=== PATIENT | male | born 1970 | race American Indian/Alaskan Native ===

== ENCOUNTER 2021-02-06 17:39 | Inpatient (IN) | payer BC, MEDICAID, OTHER ==
[~2021-02-06] VITALS: Ht 165.1 cm; Wt 84.1 kg
[~2021-02-06 17:39] MED LIST: METH-360 PO
[2021-02-06 18:43] LABS: BASOPHILS # (AUTO) 0.1 X10'3 (0-0.2); LYMPHOCYTES # (AUTO) 1.1 X10'3 (1.1-4.8); MEAN CORPUSCULAR HGB CONC 32.2 g/dL (33.0-36.5); MONOCYTES # (AUTO) 0.6 X10'3 (0-0.9); WHITE BLOOD COUNT 9.8 X10'3 (4.5-11.0)
[2021-02-06 18:44] LABS: BASOPHILS % (AUTO) 0.9 % (0-1); EOSINOPHILS % (AUTO) 0.5 % (0-6); HEMATOCRIT 52.4 % (42.0-52.0); HEMOGLOBIN 16.9 g/dl (14.0-17.9); LYMPHOCYTES % (AUTO) 11.2 % (21-51); MEAN PLATELET VOLUME 8.8 FL (7.4-10.4); MONOCYTES % (AUTO) 5.8 % (2-12); NEUTROPHILS % (AUTO) 81.6 % (42-75); PLATELET COUNT 626 X10'3 (140-440); RED BLOOD COUNT 5.64 X10'6 (4.70-6.10); RED CELL DISTRIBUTION WIDTH 12.9 % (11.5-14.5)
[2021-02-06 19:00] LABS: ALANINE AMINOTRANSFERASE 51 U/L (12-78); ALBUMIN 4.9 G/DL (3.4-5.0); ALBUMIN/GLOBULIN RATIO 1.3 (1.1-1.5); ALKALINE PHOSPHATASE 274 IU/L (46-116); ANION GAP 17 (8-16); ASPARTATE AMINO TRANSFERASE 20 U/L (10-37); BILIRUBIN,TOTAL 0.6 MG/DL (0.1-1.0); BLOOD UREA NITROGEN 19 MG/DL (7-18); BUN/CREATININE RATIO 9.9 (5.4-32.0); CALCIUM 9.5 MG/DL (8.5-10.1); CHLORIDE 84 MMOL/L (99-107); CREATININE 1.92 MG/DL (0.60-1.10); LIPASE 222 U/L (73-393); POTASSIUM 5.4 MMOL/L (3.5-5.1); SODIUM 123 MMOL/L (135-145); TOTAL CARBON DIOXIDE 22.5 MMOL/L (24-32); TOTAL PROTEIN 8.8 G/DL (6.4-8.2); eGFR 37 ML/MIN
[2021-02-06 19:35] LABS: GLUCOSE 1289 MG/DL (70-104)
[2021-02-06] MEDS ORDERED: normal saline 1000ML IV soln IVB ONE ×2 (20:15→21:05)
[2021-02-06] MEDS ORDERED: temazepam 15mg capsule PO PRN (21:00)
[2021-02-06] MEDS ORDERED: magnesium 2GM in 50ml NS 50 ML IV ONE (21:00)
[2021-02-06] MEDS ORDERED: insulin regular, human U-100 3ml vial - multi-dose IV ONE (21:05)
[2021-02-06] MEDS ORDERED: Insulin Reg/NS 100units/100mL 100 ML IV PRN (21:05)
[2021-02-06 21:10] LABS: MAGNESIUM 2.5 MG/DL (1.5-2.4)
[2021-02-06] MEDS ORDERED: dextrose ORAL solution 15 GM/59 ML bottle PO PRN ×4 (21:10→22:45)
[2021-02-06] MEDS ORDERED: glucagon, human recombinant 1mg kit SUBCUT PRN ×2 (21:10→22:45)
[2021-02-06] MEDS ORDERED: dextrose 50%-water 50ml dispensing syringe IV PRN ×4 (21:10→22:45)
[2021-02-06 21:19] LABS: PHOSPHORUS 5.4 MG/DL (2.3-4.5)
[2021-02-06 21:33] LABS: CLARITY,URINE CLEAR (Clear); COLOR,URINE YELLOW (Yellow); GLUCOSE, URINE >=1000 mg/dl (Neg); KETONES,URINE 15 mg/dl (Neg); LEUKOCYTE ESTERASE ,URINE NEGATIVE (Neg); NITRITES, URINE NEGATIVE (Neg); OCCULT BLOOD,URINE TRACE-INTACT (Neg); PROTEIN,URINE NEGATIVE (Neg); UROBILINOGEN,URINE 0.2 E.U/dL (0.2-1.0)
[2021-02-06 21:35] LABS: UA COLLECTION TYPE CLN CATCH MIDSTREAM
--- NOTE | 2021-02-06 21:39 | NUR ---
magnesium not given d/t mag labs high. aware.
[2021-02-06 21:40] LABS: BACTERIA,URINE NONE SEEN /HPF (Neg); MUCUS STRANDS NONE SEEN /LPF (Neg); RBC,URINE 0-2 /HPF (0-2); SQUAMOUS EPITHELIAL CELL,UR FEW /LPF (FEW); WBC,URINE 0-4 /HPF (0-4)
[2021-02-06] MEDS ORDERED: HYDROcodone/acetaminophen 10/325mg tab PO PRN (22:40)
[2021-02-06] MEDS ORDERED: ondansetron/PF 4mg/2ml inj IV PRN (22:40)
[2021-02-06] MEDS ORDERED: magnesium 4gm in 100ml NS 100 ML IV PRN (22:40)
[2021-02-06] MEDS ORDERED: HYDROcodone/acetaminophen 5mg/325mg tablet PO PRN (22:40)
[2021-02-06] MEDS ORDERED: potassium Cl 20 mEq SR tablet PO PRN ×2 (22:40)
[2021-02-06] MEDS ORDERED: magnesium Cl slow-release 64mg tablet PO PRN (22:40)
[2021-02-06] MEDS ORDERED: magnesium 2GM in 50ml NS 50 ML IV PRN (22:40)
[2021-02-06] MEDS ORDERED: morphine 2 MG/ML inj. syringe IV PRN ×2 (22:40)
[2021-02-06] MEDS ORDERED: acetaminophen 325mg tablet PO PRN ×2 (22:40)
[2021-02-06] MEDS ORDERED: potassium Cl 40MEQ/1/2NS 520ml 520 ML IV PRN ×2 (22:40)
[2021-02-06] MEDS ORDERED: MESSAGE TO PHARMACY PO ONE (22:45)
[2021-02-06] MEDS ORDERED: NO HOME MEDS (23:12)
[2021-02-07] MEDS: normal saline 1000ml 1,000 ML IV SCH ×4 (00:30→19:06)
[2021-02-07] MEDS: insulin Lispro (HumaLOG) vial - multi-dose SQ SCH ×3 (01:41→19:06)
[2021-02-07] MEDS: insulin glargine (Lantus) pen - multi-dose SQ SCH ×2 (01:44→21:16)
[2021-02-07] MEDS: K and/or MAG REPLACEMENT MC SCH ×2 (08:00→19:07)
[2021-02-07 08:38] LABS: BASOPHILS # (AUTO) 0.1 X10'3 (0-0.2); EOSINOPHILS # (AUTO) 0.2 X10'3 (0-0.9); HEMATOCRIT 41.4 % (42.0-52.0); HEMOGLOBIN 14.3 g/dl (14.0-17.9); LYMPHOCYTES # (AUTO) 1.7 X10'3 (1.1-4.8); MEAN CORPUSCULAR HEMOGLOBIN 29.8 PG (27.0-31.0); MEAN CORPUSCULAR HGB CONC 34.4 g/dL (33.0-36.5); MEAN CORPUSCULAR VOLUME 86.7 FL (78-98); MEAN PLATELET VOLUME 7.8 FL (7.4-10.4); MONOCYTES # (AUTO) 0.6 X10'3 (0-0.9); MONOCYTES % (AUTO) 7.7 % (2-12); NEUTROPHILS # (AUTO) 5.5 X10'3 (1.8-7.7); NEUTROPHILS % (AUTO) 67.3 % (42-75); PLATELET COUNT 432 X10'3 (140-440); RED BLOOD COUNT 4.78 X10'6 (4.70-6.10); WHITE BLOOD COUNT 8.1 X10'3 (4.5-11.0)
[2021-02-07 08:56] LABS: ALANINE AMINOTRANSFERASE 38 U/L (12-78); ALBUMIN 3.5 G/DL (3.4-5.0); ALBUMIN/GLOBULIN RATIO 1.3 (1.1-1.5); ALKALINE PHOSPHATASE 106 IU/L (46-116); ANION GAP 9 (8-16); ASPARTATE AMINO TRANSFERASE 21 U/L (10-37); BILIRUBIN,TOTAL 0.5 MG/DL (0.1-1.0); BLOOD UREA NITROGEN 13 MG/DL (7-18); BUN/CREATININE RATIO 13.4 (5.4-32.0); CALCIUM 7.7 MG/DL (8.5-10.1); CHLORIDE 108 MMOL/L (99-107); CHOLESTEROL 166 MG/DL (0-200); CREATININE 0.97 MG/DL (0.60-1.10); GLUCOSE 316 MG/DL (70-104); HDL CHOLESTEROL 33 MG/DL (35-60); LDL CHOLESTEROL 91 MG/DL (50-100); MAGNESIUM 2.2 MG/DL (1.5-2.4); POTASSIUM 4.6 MMOL/L (3.5-5.1); SODIUM 143 MMOL/L (135-145); TOTAL CARBON DIOXIDE 26.5 MMOL/L (24-32); TOTAL PROTEIN 6.2 G/DL (6.4-8.2); TRIGLYCERIDES 240 MG/DL (20-135); eGFR 82 ML/MIN
[2021-02-07 09:15] VITALS: BP 134/96
[2021-02-07] MEDS: heparin, porcine 5000 units/ml vial SQ SCH ×2 (09:19→19:07)
--- NOTE | 2021-02-07 09:52 | NUR ---
called roto mixer operator Arturo and requested consult for new onset diabetes. Arturo agreed to see him today
[2021-02-07] MEDS: pantoprazole 40 MG vial IV SCH (09:58)
[2021-02-07 11:00] VITALS: BP 133/87
--- NOTE | 2021-02-07 12:10 | NUR ---
DM Consult: Pt admit DX new onset T2DM A1C 9.9 and acute renal failure GLU currently 316 down from 1289 on admit per EMR. RN TC to RD reports pt has been aware of new DM DX requesting DM ed at this time. Pt/SO seen by RD for thorough written/verbal DM ed w/ RD contact information provided. RD reviewed protein sources/importance, hydration strategies, types of carbs, foods containing carbs, portion sizing, meal frequency, optimal snacks, signs of hyper/hypoglycemia, sick day guidelines, and encouraged pt/SO to contact dietitian's office if further questions/concerns. Pt advanced to carb controlled diet PO pending though reports good appetite. Will continue to monitor. Rec: 1. continue carb controlled diet 2. bowel care per rx 3. scaled wt this admit; subsequent weekly wts Addendum: 02/07/21 at [address] Amended: Links added.
[2021-02-07 15:00] VITALS: BP 118/83
[2021-02-07 16:57] LABS: URINE AMPHETAMINE SCREEN NEGATIVE (Neg); URINE BARBITUATE SCREEN NEGATIVE (Neg); URINE BENZODIAZEPINES SCREEN NEGATIVE (Neg); URINE CANNABINOID SCREEN NEGATIVE (Neg); URINE COCAINE SCREEN NEGATIVE (Neg); URINE METHADONE SCREEN NEGATIVE (Neg); URINE OPIATE SCREEN NEGATIVE (Neg); URINE PHENCYCLIDINE SCREEN NEGATIVE (Neg)
[2021-02-07 18:00] VITALS: BP 127/93
--- NOTE | 2021-02-07 18:11 | NUR ---
Problems reprioritized. Patient report given, questions answered & plan of care reviewed with Zhanna FERMIN. Patient sitting up eating dinner and in no acute distress.
--- NOTE | 2021-02-07 18:16 | NUR ---
Patient in room PCU 3012. I have received report from ZANDER Grajeda and had the opportunity to ask questions and assume patient care.
[2021-02-07 22:00] VITALS: BP 121/79
[2021-02-08 02:00] VITALS: BP 124/89
[2021-02-08] MEDS: normal saline 1000ml 1,000 ML IV SCH (04:51)
[2021-02-08 06:00] VITALS: BP 128/82
[2021-02-08 06:20] LABS: BASOPHILS # (AUTO) 0.1 X10'3 (0-0.2); BASOPHILS % (AUTO) 0.9 % (0-1); EOSINOPHILS # (AUTO) 0.3 X10'3 (0-0.9); EOSINOPHILS % (AUTO) 4.3 % (0-6); HEMATOCRIT 40.8 % (42.0-52.0); HEMOGLOBIN 14.1 g/dl (14.0-17.9); LYMPHOCYTES # (AUTO) 1.9 X10'3 (1.1-4.8); LYMPHOCYTES % (AUTO) 29.1 % (21-51); MEAN CORPUSCULAR HEMOGLOBIN 29.5 PG (27.0-31.0); MEAN CORPUSCULAR HGB CONC 34.6 g/dL (33.0-36.5); MEAN CORPUSCULAR VOLUME 85.1 FL (78-98); MEAN PLATELET VOLUME 7.6 FL (7.4-10.4); MONOCYTES # (AUTO) 0.4 X10'3 (0-0.9); MONOCYTES % (AUTO) 5.4 % (2-12); NEUTROPHILS # (AUTO) 3.9 X10'3 (1.8-7.7); NEUTROPHILS % (AUTO) 60.3 % (42-75); PLATELET COUNT 403 X10'3 (140-440); RED BLOOD COUNT 4.79 X10'6 (4.70-6.10); RED CELL DISTRIBUTION WIDTH 12.8 % (11.5-14.5); WHITE BLOOD COUNT 6.5 X10'3 (4.5-11.0)
--- NOTE | 2021-02-08 06:27 | NUR ---
Problems reprioritized. Patient report given, questions answered & plan of care reviewed with ZANDER Marx.
--- NOTE | 2021-02-08 06:43 | NUR ---
Patient in room PCU 3012. I have received report from ZANDER Chao and had the opportunity to ask questions and assume patient care.
[2021-02-08 06:44] LABS: BILIRUBIN,TOTAL 0.4 MG/DL (0.1-1.0); CALCIUM 7.5 MG/DL (8.5-10.1); CHLORIDE 107 MMOL/L (99-107); POTASSIUM 4.2 MMOL/L (3.5-5.1); TOTAL PROTEIN 5.8 G/DL (6.4-8.2)
[2021-02-08 06:58] LABS: ALANINE AMINOTRANSFERASE 37 U/L (12-78); ALBUMIN 3.2 G/DL (3.4-5.0); ALBUMIN/GLOBULIN RATIO 1.2 (1.1-1.5); ALKALINE PHOSPHATASE 91 IU/L (46-116); ANION GAP 9 (8-16); ASPARTATE AMINO TRANSFERASE 25 U/L (10-37); BLOOD UREA NITROGEN 12 MG/DL (7-18); BUN/CREATININE RATIO 12.2 (5.4-32.0); CREATININE 0.98 MG/DL (0.60-1.10); GLUCOSE 294 MG/DL (70-104); MAGNESIUM 2.1 MG/DL (1.5-2.4); SODIUM 140 MMOL/L (135-145); TOTAL CARBON DIOXIDE 24.4 MMOL/L (24-32); eGFR 81 ML/MIN
[2021-02-08] MEDS: K and/or MAG REPLACEMENT MC SCH (08:00)
[2021-02-08] MEDS: pantoprazole 40 MG vial IV SCH (08:37)
[2021-02-08] MEDS: heparin, porcine 5000 units/ml vial SQ SCH (08:37)
[2021-02-08] MEDS: insulin Lispro (HumaLOG) vial - multi-dose SQ SCH (08:45)
[2021-02-08] MEDS ORDERED: AMA1T PO (09:20)
[2021-02-08] MEDS ORDERED: PANT40TA54 PO (09:20)
[2021-02-08] MEDS ORDERED: LINA5TAB4 PO (09:20)
[2021-02-08] MEDS ORDERED: METF-950 PO (09:20)
[2021-02-08] MEDS ORDERED: LISI10TA27 PO (09:20)
[2021-02-08] MEDS ORDERED: ASPI-611 PO (09:20)
[2021-02-08 11:00] VITALS: BP 131/96
--- NOTE | 2021-02-08 11:00 | NUR ---
Patient stable for discharge per MD orders. All discharge instructions reviewed with patient and all questions answered. Patient has made his own follow up appointment. New prescriptions were sent to patient's pharmacy. PIV discontinued with cannula intact. site monitor discontinued. Belongings collected and sent with patient. Patient was walked to the [facility] and left in a private vehicle with his .
== END 2021-02-08 11:00 | disposition home or self-care (01) | DRG 638 ==
LOC: ER 17:40 → ED HOLD 22:43 → PCU 3S 02-07 08:20
PROVIDERS: ADMIT Internal Medicine; ATTEND Family Medicine
DX: E11.10 Type 2 diabetes mellitus with ketoacidosis without coma (principal); E87.1 Hypo-osmolality and hyponatremia; N17.9 Acute kidney failure, unspecified; E87.5 Hyperkalemia; R35.0 Frequency of micturition; Z20.822 Contact with and (suspected) exposure to COVID-19; F17.220 Nicotine dependence, chewing tobacco, uncomplicated; Z82.49 Family history of ischemic heart disease and other diseases of the circulatory system; Z83.3 Family history of diabetes mellitus; Z88.8 Allergy status to other drugs, medicaments and biological substances; Z72.89 Other problems related to lifestyle; Z71.6 Tobacco abuse counseling
CPT/HCPCS: 36415; 71045; 80053; 80061; 80305; 81001; 82009; 82948; 83036; 83605; 83690; 83735; 84100; 85025; 87040; 87081; 87635; 93005; 96361; 96372; 96374; 99285; C9113; C9803; G0378; J1644; J1815; J7030